=== PATIENT | female | born 1980 | race Caucasian/White ===

== ENCOUNTER → 2016-07-05 | Outpatient (CLI) | payer OTHER ==
[~2016-07-05] MED LIST: AUGMENTIN875 M1 PO; BACTRIM DS TAB1 EACH PO; BACTRIM DS TABL1 TA1 PO; BACTROBAN15 GM TOP; CELEXA20 MG PO; DOXYCYCLINE PO; HUMIRA PSO40 MG/0.8 SQ; HYDROCODON-ACE1 EAC9 PO; LEVAQUIN PO; LORTAB 7.5-3251 EACH PO; METRONIDAZOLE PO; NO MEDICATIONS; NORCO1 TAB 10/3 PO; SODIUM CHLORI1000 ML INJ; WELLBUTRIN SR150 M1; WELLBUTRIN SR200 MG PO; ZYVOX600 MG PO
[2016-07-05 09:16] LABS: HEMATOCRIT 41.4 % (35.0-45.0); HEMOGLOBIN 13.2 gm/dL (12.0-16.0); MEAN CELL VOLUME 86.5 FL (83-96); MEAN CORPUSCULAR HEMOGLOBIN 27.6 PG (28-34); MEAN CORPUSCULAR HGB CONC 31.9 g/dL (30-36); MEAN PLATELET VOLUME 9.5 FL (6.5-11.5); RED BLOOD COUNT 4.78 X10e (3.90-5.30); RED CELL DISTRIBUTION WIDTH 14.6 % (11.0-15.5); WHITE BLOOD COUNT 12.1 X10e3 (4.0-10.5)
[2016-07-05 10:18] LABS: ALBUMIN SERUM 4.1 g/dL (3.5-5.0); BILIRUBIN,TOTAL 0.4 mg/dL (0.2-2.0); BUN/CREATININE RATIO 14.28; CALCIUM SERUM 9.7 mg/dL (8.4-10.2); CREATININE SERUM 0.7 mg/dL (0.6-1.4); GLOM FILT RATE Estimated 110.7 mL/min (>60); POTASSIUM 4.2 mmol/L (3.5-5.1); PROTEIN TOTAL SERUM 7.5 g/dL (6.0-8.3)
== END | disposition home or self-care (01) ==
LOC: CLAB 08:49
PROVIDERS: Dermatology
DX: L73.2 Hidradenitis suppurativa (principal)
CPT/HCPCS: 36415; 80053; 85027

== ENCOUNTER 2016-09-13 15:00 | Inpatient (IN) | payer OTHER ==
--- NOTE | ~2016-09-13 | DS ---
Unit #: [id number] #: [id number] Patient: IDA BAÑUELOS [id number] [facility]. [place] [id number] [facility]. [place], [place] [address] [id number] MR#: [id number] NAME: IDA BAÑUELOS. ROOM: 477 Age: 36 Sex: F Admission Date: 09/13/2016 : 1980 Discharge Date: 09/16/2016 Attending Physician: Malik Naylor III, M.D. Primary Care Physician: Johanny Palomo M.D. DISCHARGE SUMMARY HISTORY AND HOSPITAL COURSE Ms. Bañuelos presented with recurrent groin abscess. She underwent incision, drainage and debridement in the operating room by Dr. Naylor. Postoperatively, she had an unremarkable course but she refused wound packing. We recommended sitz baths after that but she says that hurts and she wants to just spray them with water. The patient is argumentative and tearful about her care and, in trying to discuss with her the value of sitz baths or wound packing, she just won't hear of it. She wants to go home today. She is otherwise hemodynamically stable and her labs are okay. We will send her home with instructions to do sitz baths but I am afraid she won't do them. A prescription for Lortab and Bactrim were left. I have asked her to follow with Dr. Naylor in the office in one to two weeks. The patient understood these instructions and hopefully we will see her back in the office. Dictated by... Shashi Lee M.D. LEIDA/tom TD: 09/19/2016 06:26 JOB #: [id number] DISCHARGE SUMMARY Page 1 of 1 X Shashi Lee MD X DISCHARGE SUMMARY
--- NOTE | ~2016-09-13 | OR ---
Unit #: [id number] #: [id number] Patient: IDA BAÑUELOS [id number] [address] [place], [place] [address] [id number] Yuniel MR#: [id number] NAME: IDA BAÑUELOS. ROOM: 477 Date of Procedure: 09/15/2016 Admission Date: 09/13/2016 Surgeon: Malik Naylor III, M.D. : 1980 Attending Physician: Malik Naylor III, M.D. Primary Care Physician: Johanny Palomo M.D. OPERATIVE REPORT PREOPERATIVE DIAGNOSIS Recurrent hidradenitis suppurativa of the left groin area with abscess formation. POSTOPERATIVE DIAGNOSIS Recurrent hidradenitis suppurativa of the left groin area with abscess formation. PROCEDURE PERFORMED Incision and drainage of perineal abscesses x2. ANESTHESIA General. SPECIMEN Cultures were sent to microbiology. COMPLICATIONS None apparent. INDICATIONS FOR PROCEDURE This is a 36-year-old lady, who has had recurrent hidradenitis of the bilateral groin areas, but specifically has a flare up in the left groin and perineal region at this time. She has one main area that is very tender and an another area that seems to be developing. She has been on antibiotics for the last 36 hours with no significant improvement. DESCRIPTION OF PROCEDURE After consent was obtained, the patient was brought to the operating room and placed in the supine position. General anesthetic was administered and her perineum was then prepped and draped in standard surgical fashion. I made a small counter incision overlying the area that was tender and indurated. There was a small amount of fluid that was released from this. Cultures were obtained. I broke up all the loculated areas and packed it with iodoform gauze. She had another small area that seemed to be developing between the posterior vaginal orifice and the rectal area. I again made a small counter incision overlying this area. There was a small amount of purulent material that was expressed. I then had good hemostasis. All needle, sponge, and instrument counts were correct x2. She returned to the recovery room in stable condition. Unit #: [id number] #: [id number] Patient: IDA BAÑUELOS Dictated by... Vincgiovanni Naylor III, M.D. VCL/lucinda TD: 09/15/2016 16:26 JOB #: [id number] OPERATIVE REPORT Page 1 of 1 X Malik Naylor III, MD X PROCEDURE OPERATIVE NOTE
[~2016-09-13 15:00] MED LIST changes: -BACTRIM DS TAB1 EACH PO
[2016-09-13 20:07] LABS: BASOPHIL# 0.1 X10e3 (0-0.3); BASOPHIL% 0.5 % (0-2.5); EOSINOPHIL# 0.1 X10e3 (0-0.7); EOSINOPHIL% 0.6 % (0.0-7.0); HEMATOCRIT 43.1 % (35.0-45.0); HEMOGLOBIN 13.7 gm/dL (12.0-16.0); LYMPHOCYTE# 4.2 X10e3 (1.0-3.5); LYMPHOCYTE% 28.6 % (17.0-45.0); MEAN CELL VOLUME 86.6 FL (83-96); MEAN CORPUSCULAR HEMOGLOBIN 27.6 PG (28-34); MEAN CORPUSCULAR HGB CONC 31.9 g/dL (30-36); MEAN PLATELET VOLUME 9.9 FL (6.5-11.5); MONOCYTE# 1.1 X10e3 (0-1.0); MONOCYTE% 7.6 % (3.0-12.0); NEUTROPHIL# 9.2 X10e3 (1.5-7.1); NEUTROPHIL% 62.7 % (40-75); PLATELET COUNT 263 X10e3 (140-420); RED BLOOD COUNT 4.98 X10e (3.90-5.30); WHITE BLOOD COUNT 14.7 X10e3 (4.0-10.5)
[2016-09-13 20:10] LABS: DIFF IND NO
[2016-09-13 20:21] LABS: BUN/CREATININE RATIO 17.5; CALCIUM SERUM 9.2 mg/dL (8.4-10.2); CREATININE SERUM 0.8 mg/dL (0.6-1.4); GLOM FILT RATE Estimated 94.3 mL/min (>60); POTASSIUM 3.7 mmol/L (3.5-5.1)
[2016-09-14 03:00] LABS: BUN/CREATININE RATIO 17.14; CALCIUM SERUM 8.9 mg/dL (8.4-10.2); CREATININE SERUM 0.7 mg/dL (0.6-1.4); GLOM FILT RATE Estimated 110.7 mL/min (>60); POTASSIUM 4.2 mmol/L (3.5-5.1)
[2016-09-16 03:35] LABS: BUN/CREATININE RATIO 8.57; CALCIUM SERUM 8.5 mg/dL (8.4-10.2); CREATININE SERUM 0.7 mg/dL (0.6-1.4); GLOM FILT RATE Estimated 110.7 mL/min (>60); POTASSIUM 3.6 mmol/L (3.5-5.1)
[2016-09-16] MEDS ORDERED: LORTAB 7.5-3251 EACH PO (07:51)
[2016-09-16] MEDS ORDERED: BACTRIM DS TAB1 EACH PO (07:52)
== END 2016-09-16 11:14 | disposition home health service (06) | DRG 581 ==
LOC: C4C 15:00 → UNDOADMIN 15:07 → C4C 09-16 11:14
PROVIDERS: Surgery
PROC: 0J9B0ZZ Drainage of Perineum Subcutaneous Tissue and Fascia, Open Approach (ICD-10-PCS; principal; 2016-09-15 11:00)
DX: L02.215 Cutaneous abscess of perineum (principal); F41.9 Anxiety disorder, unspecified; L73.2 Hidradenitis suppurativa; L02.214 Cutaneous abscess of groin; F17.210 Nicotine dependence, cigarettes, uncomplicated
CPT/HCPCS: 80048; 80202; 84703; 85025; 87070; 87075; 87205; J1170; J2250; J2405; J2550; J3010; J3370; J7042

== ENCOUNTER 2016-09-26 23:40 | Emergency (ER) | payer OTHER ==
[2016-09-27 01:45] LABS: BASOPHIL# 0.1 X10e3 (0-0.3); BASOPHIL% 0.4 % (0-2.5); DIFF IND YES; EOSINOPHIL# 0.1 X10e3 (0-0.7); EOSINOPHIL% 0.8 % (0.0-7.0); HEMOGLOBIN 11.7 gm/dL (12.0-16.0); LYMPHOCYTE# 6.1 X10e3 (1.0-3.5); LYMPHOCYTE% 30.5 % (17.0-45.0); MEAN CELL VOLUME 87.4 FL (83-96); MEAN CORPUSCULAR HEMOGLOBIN 27.6 PG (28-34); MEAN CORPUSCULAR HGB CONC 31.5 g/dL (30-36); MEAN PLATELET VOLUME 9.7 FL (6.5-11.5); MONOCYTE# 1.3 X10e3 (0-1.0); MONOCYTE% 6.4 % (3.0-12.0); NEUTROPHIL# 12.3 X10e3 (1.5-7.1); NEUTROPHIL% 61.9 % (40-75); PLATELET COUNT 334 X10e3 (140-420); RED BLOOD COUNT 4.24 X10e (3.90-5.30); RED CELL DISTRIBUTION WIDTH 14.5 % (11.0-15.5); WHITE BLOOD COUNT 19.8 X10e3 (4.0-10.5)
[2016-09-27 02:35] LABS: PLATELET ESTIMATE NORMAL (NORMAL); RBC NORMAL YES
== END 2016-09-27 03:45 | disposition home or self-care (01) ==
LOC: CED 23:40
PROVIDERS: Nurse Practitioner Family
DX: L76.22 Postprocedural hemorrhage of skin and subcutaneous tissue following other procedure (principal); Z88.5 Allergy status to narcotic agent; F17.210 Nicotine dependence, cigarettes, uncomplicated
CPT/HCPCS: 12001; 36415; 85025; 96361; 96372; 96374; 99284; 99291; J1170; J1200

== ENCOUNTER → 2016-09-26 | Day surgery (SDC) | payer OTHER ==
[~2016-09-26] MED LIST changes: +BACTRIM DS TAB1 EACH PO
--- NOTE | ~2016-09-26 | OR ---
Unit #: [id number] #: [id number] Patient: IDA BAÑUELOS [id number] [address] [place], [place] [address] [id number] MR#: [id number] NAME: IDA BAÑUELOS ROOM: Date of Procedure: 09/26/2016 Admission Date: 09/26/2016 Surgeon: Jigar Gramajo Jr., M.D. : 1980 Attending Physician: Jigar Gramajo Jr., M.D. Primary Care Physician: Johanny Palomo M.D. OPERATIVE REPORT INDICATION FOR THE PROCEDURE The patient is a 36-year-old white female, who has had problems with chronic hidradenitis of both perineal area. She developed 2 abscesses on the right side and it was felt that the small suprapubic area should be excised, which was not abscess at present primarily closed and the other opened and packed. She is brought in this time for this procedure at her request. She understands the procedure including the risks, including that of recurrent disease in different areas, chronic infection, pain, and consents. PREOPERATIVE DIAGNOSES Chronic hidradenitis of the right perineal area, had folliculitis of the suprapubic area. POSTOPERATIVE DIAGNOSIS Chronic hidradenitis of the right perineal area, had folliculitis of the suprapubic area. The area of the suprapubic region was approximately 2.5 to 3 cm in diameter. The area of the right perineal area was approximately 8 cm in diameter. ANESTHESIA General with LMA. PROCEDURE PERFORMED Excision of chronic follicular wound of the suprapubic area with primary closure and sharp excisional debridement using #10 blade scalpel of the right perineal hidradenitis area. DESCRIPTION OF PROCEDURE The patient was positioned in supine position. After being anesthetized, she was prepped and draped in routine fashion for excision of the hidradenitis with excision of the suprapubic area described above. An elliptical incision made around the area in the suprapubic region with the entire area of inflammatory tissue being removed with a #10 blade scalpel down to the deeper subcutaneous tissue. After it was completely removed, hemostasis achieved with Bovie cautery. Deeper tissue approximated with interrupted 3-0 Vicryl sutures. Skin edges approximated with interrupted 3-0 nylon sutures. Ointment was applied externally. An elliptical incision was made around the 2 abscesses in the right perineal area with it being totally excised from the surrounding tissue and down to the deeper subcutaneous tissue with a #10 blade scalpel. After this tissue was completely removed, hemostasis was achieved with Bovie cautery and the Unit #: [id number] #: [id number] Patient: IDA BAÑUELOS abscesses were cultured and after hemostasis achieved with Bovie cautery, the wound was packed open with saline moist dry dressings. Sterile dressings were applied externally. Estimated blood loss less than 100 mL. The patient received less than 1000 mL crystalloid solution during the procedure. Sponges and instrument counts were correct x3. No drains used. No complications. The patient was taken to the recovery room with stable vital signs in satisfactory condition. Dictated by... Jigar Gramajo Jr., M.D. JMB/lucinda TD: 09/26/2016 18:52 JOB #: [id number] CC: Johanny Palomo M.D. OPERATIVE REPORT Page 1 of 1 X Jigar Gramajo MD X PROCEDURE OPERATIVE NOTE
== END | disposition home or self-care (01) ==
LOC: CSUR 07:44
DX: L73.2 Hidradenitis suppurativa (principal); L72.0 Epidermal cyst; F17.210 Nicotine dependence, cigarettes, uncomplicated; Z88.6 Allergy status to analgesic agent; Z79.891 Long term (current) use of opiate analgesic; Z79.899 Other long term (current) drug therapy; Z98.51 Tubal ligation status; Z90.49 Acquired absence of other specified parts of digestive tract; Z98.890 Other specified postprocedural states
CPT/HCPCS: 84703; 87070; 87075; 87205; 88304; J0330; J1170; J2250; J3010; J3370

== ENCOUNTER 2016-10-05 11:08 | Emergency (ER) | payer OTHER ==
[2016-10-05 13:08] LABS: URINE SOURCE CLEAN CATCH
[2016-10-05 13:19] LABS: BASOPHIL# 0.2 X10e3 (0-0.3); BASOPHIL% 1.2 % (0-2.5); DIFF IND YES; EOSINOPHIL# 0.2 X10e3 (0-0.7); EOSINOPHIL% 0.9 % (0.0-7.0); HEMATOCRIT 36.5 % (35.0-45.0); HEMOGLOBIN 11.9 gm/dL (12.0-16.0); LYMPHOCYTE% 23.5 % (17.0-45.0); MEAN CORPUSCULAR HEMOGLOBIN 27.7 PG (28-34); MEAN CORPUSCULAR HGB CONC 32.6 g/dL (30-36); MEAN PLATELET VOLUME 9.3 FL (6.5-11.5); MONOCYTE# 1.2 X10e3 (0-1.0); NEUTROPHIL# 11.5 X10e3 (1.5-7.1); NEUTROPHIL% 67.4 % (40-75); PLATELET COUNT 411 X10e3 (140-420); RED BLOOD COUNT 4.29 X10e (3.90-5.30); RED CELL DISTRIBUTION WIDTH 14.8 % (11.0-15.5); WHITE BLOOD COUNT 17.1 X10e3 (4.0-10.5)
[2016-10-05 13:21] LABS: URINE APPEARANCE SL CLOUDY; URINE BLOOD 2+ (NEG); URINE COLOR YELLOW; URINE GLUCOSE NORM (NORM); URINE KETONE 2+ (NEG); URINE LEUKOCYTE ESTERASE 2+ (NEG); URINE NITRATE NEG (NEG); URINE PH 6.5 (5-8); URINE PROTEIN 1+ (NEG); URINE SPECIFIC GRAVITY 1.015 (1.003-1.035); URINE UROBILINOGEN NORM (NORM)
[2016-10-05 13:30] LABS: URINE BILIRUBIN NEG (NEG)
[2016-10-05 13:36] LABS: ALBUMIN SERUM 4.2 g/dL (3.5-5.0); ALKALINE PHOSPHATASE 80 U/L (32-92); ALT (SGPT) 13 U/L (10-40); AST (SGOT) 16 U/L (10-42); BILIRUBIN,TOTAL 0.6 mg/dL (0.2-2.0); BLOOD UREA NITROGEN 9 mg/dL (9-23); CALCIUM SERUM 9.3 mg/dL (8.4-10.2); CARBON DIOXIDE 25 mmol/L (22-31); CHLORIDE 103 mmol/L (100-111); CREATININE SERUM 0.6 mg/dL (0.6-1.4); GLOM FILT RATE Estimated 116.4 mL/min (>60); GLUCOSE FASTING 86 mg/dL (70-110); PROTEIN TOTAL SERUM 8.6 g/dL (6.0-8.3); SODIUM 136 mmol/L (135-145)
[2016-10-05 13:37] LABS: BILIRUBIN, DIRECT <0.1 mg/dL (0.0-0.2); BILIRUBIN,INDIRECT 0.5 mg/dL (0.0-0.9)
[2016-10-05 13:40] LABS: CULTURE INDICATED? YES; URINE BACTERIA AUWI 2+ (NEGATIVE); URINE MUCUS PRESENT; URINE SQUAMOUS EPITHELIAL CELL FEW /[HPF]
[2016-10-05 13:45] LABS: PLATELET ESTIMATE NORMAL (NORMAL); RBC NORMAL YES
== END 2016-10-05 15:05 | disposition home or self-care (01) ==
LOC: CED 11:08
PROVIDERS: Emergency Medicine
DX: D72.829 Elevated white blood cell count, unspecified (principal); R50.82 Postprocedural fever; F17.210 Nicotine dependence, cigarettes, uncomplicated; Z90.49 Acquired absence of other specified parts of digestive tract; Z88.5 Allergy status to narcotic agent
CPT/HCPCS: 36415; 80048; 80076; 81003; 83605; 84703; 85025; 87040; 87086; 96361; 96374; 99283; J2405

== ENCOUNTER 2016-10-05 20:42 | Emergency (ER) | payer OTHER ==
--- NOTE | ~2016-10-05 | CT4 ---
[facility] A Service of [facility] RADIOLOGY TEXT RESULTS PATIENT: IDA BAÑUELOS LOCATION: [facility] : [birth year] UNIT #: [id number] AGE: [address]: Angie Forrester MD SEX: F ORDER DR: [id number] [facility] [address] [place], [place] [address] [id number] MR#: [id number] Acc #: [id number] NAME: IDA BAÑUELOS. : 1980 SEX: F STUDY DATE/TIME: 10/05/2016 22:45 UNIT: [facility] ROOM: STUDY DESCRIPTION: CT Abd and Pelv Wo Cont Attending Physician: Angie Forrester M.D. Ordering Physician: Angie Forrester M.D. Primary Care Physician: Johanny Palomo M.D. MEDICAL IMAGING REPORT This report is preliminary unless electronic signature is present EXAM Abdomen and pelvis CT no contrast 10/05/2016 INDICATION 36-year-old female complaining of pelvic pain, burning sensation, fever, nausea x2 days. History of ulcerative colitis, appendectomy, cholecystectomy. TECHNIQUE Noncontrast abdomen and pelvis CT was performed. Comparison 06/01/2014. This CT examination was performed with one or more of the following radiation dose reduction techniques: automatic exposure control, adjustment of mA and/or kV according to patient size, and iterative reconstruction. FINDINGS CT ABDOMEN: Exam markedly degraded by noncontrast technique. Included lung bases are clear. Aorta demonstrates no aneurysm. Gallbladder is surgically absent. Spleen, adrenal glands and pancreas are unremarkable. Liver is unremarkable. Kidneys demonstrate no hydronephrosis. Tiny nonobstructing stone or calyceal diverticulum stone present in the right kidney. Ureters unremarkable to the extent visualized. CT PELVIS: Bladder decompressed. Trace free fluid in the pelvis. Bowel demonstrates no obstruction or focal inflammatory change and the appendix is surgically absent by history. No inguinal adenopathy or fluid collection. No adnexal mass. Small follicles in both ovaries. No suspicious bone lesion. IMPRESSION [facility] A Service of [facility] RADIOLOGY TEXT RESULTS PATIENT: IDA BAÑUELOS LOCATION: [facility] : 78 UNIT #: [id number] AGE: [address]: Angie Forrester MD SEX: F ORDER DR: 1. No clearly acute process in the abdomen or pelvis. No bowel obstruction, drainable fluid collection or focal area of inflammatory change. 2. Surgical absence of the gallbladder and appendix. 3. Trace free fluid in the pelvis appearing to be physiologic. 4. Nonobstructing stone in the right kidney. Dictated by... Charles Cote M.D. THIS IS AN ELECTRONICALLY VERIFIED REPORT Charles Cote M.D. at 10/06/2016 10:33 AM [place] TD: 10/06/2016 06:00 JOB #: [id number] MEDICAL IMAGING REPORT Page 1 of 1 COPY
== END 2016-10-06 00:18 | disposition home or self-care (01) ==
LOC: CED 20:42
DX: N39.0 Urinary tract infection, site not specified (principal); Z90.49 Acquired absence of other specified parts of digestive tract; Z98.890 Other specified postprocedural states
CPT/HCPCS: 36415; 74176; 96365; 99284; J0696; J2405